=== PATIENT | male | born 1980 | race Caucasian/White ===

== ENCOUNTER 2024-05-05 14:46 | Day surgery (SDC) | payer OTHER ==
[2024-05-05] MEDS ORDERED: Sodium Chloride 0.9(Preservative Free) 10 ML IJ ONE (14:47)
[2024-05-05] MEDS ORDERED: Depo-Medrol 40 MG/ML IM ONE (14:47)
[2024-05-05] MEDS ORDERED: LIDOCAINE HCL 1% 50 MG/5 ML VL PF IJ ONE (14:47)
[2024-05-05] MEDS ORDERED: DIPRIVAN 200 MG/20 ML IV ONE ×2 (16:06→16:13)
[2024-05-05] MEDS ORDERED: Lactated Ringers 1,000 ML IV ONE (16:24)
--- NOTE | 2024-05-05 22:13 | XRAY ---
Indication: Lumbar RONI. Intraoperative fluoroscopy provided for 21 seconds. 3 digital spot images submitted for interpretation demonstrates needle tip posterior to lumbosacral junction interspace. Small amount of contrast injected for needle tip placement. Correlate with intraoperative findings/report.
--- NOTE | 2024-05-06 07:18 | XRAY ---
21 seconds of fluoroscopy were used in surgery for a lumbar RONI.
== END 2024-05-05 16:40 | disposition home or self-care (01) ==
LOC: SDC-PAIN 14:46
PROVIDERS: ATTEND Psychiatry & Neurology Pain Medicine
DX: M54.16 Radiculopathy, lumbar region (principal)
CPT/HCPCS: 62323; 72100; 77003; J1010; J2001; J2704; Q9966

== ENCOUNTER 2024-06-30 12:23 | Day surgery (SDC) | payer OTHER ==
[2024-06-30] MEDS ORDERED: Xylocaine-Mpf 2% 5 Ml Vial IJ ONE (12:24)
[2024-06-30] MEDS ORDERED: DIPRIVAN 200 MG/20 ML IV ONE (14:24)
[2024-06-30] MEDS ORDERED: Lactated Ringers 1,000 ML IV ONE (15:02)
--- NOTE | 2024-06-30 15:08 | XRAY ---
Indication: Bilateral L4-S1 MBB. Intraoperative fluoroscopy provided for 8 seconds. Single digital spot image submitted for interpretation demonstrates posterior needle tips projecting over the expected left and right L4-S1 nerve roots. Correlate with intraoperative findings/report.
--- NOTE | 2024-06-30 15:14 | XRAY ---
8 seconds of fluoroscopy was used in surgery for a bilateral L4-S! MBB.
== END 2024-06-30 14:51 | disposition home or self-care (01) ==
LOC: SDC-PAIN 12:23
PROVIDERS: ATTEND Psychiatry & Neurology Pain Medicine
DX: M47.816 Spondylosis without myelopathy or radiculopathy, lumbar region (principal)
CPT/HCPCS: 64493; 64494; 72020; 77002; J2704

== ENCOUNTER 2024-07-28 12:57 | Day surgery (SDC) | payer OTHER ==
[2024-07-28] MEDS ORDERED: BUPIVACAINE 0.5% VIAL IJ ONE (12:58)
[2024-07-28] MEDS ORDERED: DIPRIVAN 200 MG/20 ML IV ONE (14:16)
--- NOTE | 2024-07-28 14:54 | XRAY ---
Indication: Bilateral L4-S1 MBB. Intraoperative fluoroscopy provided for 8 seconds. Single digital spot image submitted for interpretation demonstrates posterior needle tips projecting over expected left and right L4-S1 nerve roots. Correlate with intraoperative findings/report.
[2024-07-28] MEDS ORDERED: Lactated Ringers 1,000 ML IV ONE (15:02)
--- NOTE | 2024-07-28 15:26 | XRAY ---
8 seconds of fluoroscopy was used in surgery for a bilateral L4-S1 MBB.
== END 2024-07-28 14:49 | disposition home or self-care (01) ==
LOC: SDC-PAIN 12:57
PROVIDERS: ATTEND Psychiatry & Neurology Pain Medicine
DX: M47.816 Spondylosis without myelopathy or radiculopathy, lumbar region (principal)
CPT/HCPCS: 64493; 64494; 72020; 77002; J2704

== ENCOUNTER 2024-09-01 10:37 | Day surgery (SDC) | payer OTHER ==
[2024-09-01] MEDS ORDERED: BUPIVACAINE 0.5% VIAL IJ ONE (10:38)
[2024-09-01] MEDS ORDERED: LIDOCAINE HCL 1% AMPUL 5 ML IJ ONE (10:38)
[2024-09-01] MEDS ORDERED: Depo-Medrol 40 MG/ML IM ONE (10:38)
[2024-09-01] MEDS ORDERED: DIPRIVAN 200 MG/20 ML IV ONE (12:45)
--- NOTE | 2024-09-01 13:37 | XRAY ---
Indication: Right L4-S1 RFA. Intraoperative fluoroscopy provided 18 seconds. 3 digital spot image submitted for interpretation demonstrates posterior needle tips projecting over the expected right L4-S1 nerve roots. Correlate with intraoperative findings/report.
[2024-09-01] MEDS ORDERED: Lactated Ringers 1,000 ML IV ONE (14:47)
--- NOTE | 2024-09-01 15:00 | XRAY ---
18 seconds of fluoroscopy was used in surgery for a right L4-S1 RFA.
== END 2024-09-01 13:19 | disposition home or self-care (01) ==
LOC: SDC-PAIN 10:37
PROVIDERS: ATTEND Psychiatry & Neurology Pain Medicine
DX: M47.816 Spondylosis without myelopathy or radiculopathy, lumbar region (principal)
CPT/HCPCS: 64635; 64636; 72100; 77002; J2704

== ENCOUNTER 2024-09-15 11:09 | Day surgery (SDC) | payer OTHER ==
[2024-09-15] MEDS ORDERED: BUPIVACAINE 0.5% VIAL IJ ONE (11:10)
[2024-09-15] MEDS ORDERED: Depo-Medrol 40 MG/ML IM ONE (11:10)
[2024-09-15] MEDS ORDERED: LIDOCAINE HCL 1% AMPUL 5 ML IJ ONE (11:10)
[2024-09-15] MEDS ORDERED: DIPRIVAN 200 MG/20 ML IV ONE ×2 (12:44→12:49)
--- NOTE | 2024-09-15 13:45 | XRAY ---
Indication: Left L4-S1 RFA. Intraoperative fluoroscopy provided for 19 seconds. 4 digital spot image submitted for interpretation demonstrates posterior needle tips projecting over the expected left L4-S1 nerve roots. Correlate with intraoperative findings/report.
--- NOTE | 2024-09-15 13:53 | XRAY ---
19 seconds of fluoroscopy was used in surgery for a left L4-S1 RFA.
== END 2024-09-15 13:16 | disposition home or self-care (01) ==
LOC: SDC-PAIN 11:09
PROVIDERS: ATTEND Psychiatry & Neurology Pain Medicine
DX: M47.817 Spondylosis without myelopathy or radiculopathy, lumbosacral region (principal)
CPT/HCPCS: 64635; 64636; 72100; 77002; J2704

== ENCOUNTER 2024-11-10 14:45 | Day surgery (SDC) | payer BC, OTHER ==
[2024-11-10] MEDS ORDERED: Sodium Chloride 0.9(Preservative Free) 10 ML IJ ONE (14:46)
[2024-11-10] MEDS ORDERED: LIDOCAINE HCL 1% AMPUL 5 ML IJ ONE (14:46)
[2024-11-10] MEDS ORDERED: Decadron 4 MG INJ IV ONE (14:46)
--- NOTE | 2024-11-10 16:50 | XRAY ---
Indication: Cervical RONI. Intraoperative fluoroscopy provided for 15 seconds. 3 digital spot image submitted for interpretation demonstrates posterior needle tip projecting posterior to cervical thoracic junction. Small amount of contrast injected for needle tip placement. Correlate with intraoperative findings/report.
--- NOTE | 2024-11-10 17:05 | XRAY ---
15 seconds of fluoroscopy was used in surgery for a cervical RONI.
== END 2024-11-10 16:27 ==
LOC: SDC-PAIN 14:45
PROVIDERS: ATTEND Psychiatry & Neurology Pain Medicine
DX: M54.12 Radiculopathy, cervical region (principal)
CPT/HCPCS: 62321; 72040; 77003; J1100; Q9966

== ENCOUNTER 2024-12-29 09:07 | Day surgery (SDC) | payer BC ==
[2024-12-29] MEDS ORDERED: LIDOCAINE HCL 2% 100 MG/5 ML IJ ONE (09:08)
[2024-12-29] MEDS ORDERED: Depo-Medrol 40 MG/ML IM ONE (09:08)
[2024-12-29] MEDS ORDERED: propofoL IV ONE ×2 (11:47→11:52)
--- NOTE | 2024-12-29 13:26 | XRAY ---
Indication: Bilateral L2-L4 MBB. Intraoperative fluoroscopy provided for 12 seconds. Single digital spot image submitted for interpretation demonstrates posterior needle tips projecting over expected left and right L2-L4 nerve roots. Correlate with intraoperative findings/report.
--- NOTE | 2024-12-29 14:38 | XRAY ---
12 seconds of fluoroscopy was used in surgery for a bilateral L2-L4 MBB.
== END 2024-12-29 12:20 | disposition home or self-care (01) ==
LOC: SDC-PAIN 09:07
PROVIDERS: ATTEND Psychiatry & Neurology Pain Medicine
DX: M47.816 Spondylosis without myelopathy or radiculopathy, lumbar region (principal)
CPT/HCPCS: 64493; 64494; 72020; 77002; J2704